=== PATIENT | female | born 1980 | race Caucasian/White ===

== ENCOUNTER → 2020-05-04 08:48 | Outpatient (BNVA) | payer MEDICAID, SELFPAY | PROVIDERS: PCP Nurse Practitioner Family; Referring Provider Nurse Practitioner Family; Visit Provider Physician Assistant | DX: R19.7 Diarrhea, unspecified (principal); K76.0 Fatty (change of) liver, not elsewhere classified; R74.8 Abnormal levels of other serum enzymes; D18.03 Hemangioma of intra-abdominal structures | CPT/HCPCS: 99212 ==

== ENCOUNTER 2020-05-30 06:43 | Outpatient (REF) | payer MEDICAID, SELFPAY ==
[2020-05-30 07:54] LABS: Alanine Aminotransferase 27 U/L (0-31); Albumin Level 4.2 g/dL (3.5-5.0); Alkaline Phosphatase 86 U/L (39-117); Anion Gap 15 (12-20); Aspartate Amino Transferase 31 U/L (5-31); Bilirubin Total 0.3 mg/dL (0.0-1.0); Blood Urea Nitrogen 9 mg/dL (9-16); Calcium 9.1 mg/dL (8.4-10.2); Carbon Dioxide 24 mmol/L (22-29); Chloride 102 mmol/L (96-108); Estimated Glomerular Filt Rate > 60; Glucose Random 124 mg/dL (60-115); Magnesium 1.9 mg/dL (1.6-2.6); Sodium 137 mmol/L (135-145); Total Protein 7.3 g/dL (6.5-8.0)
[2020-05-30 08:09] LABS: HBc Num1 0.04 S/CO (0.00-0.79); HBsAGNum1 0.15 S/CO (0.00-0.99); Hepatitis B Core Antibody Nonreactive (Nonreactive); Hepatitis B Surface Antigen Negative (Negative)
[2020-05-30 08:16] LABS: Thyroid Stimulating Hormone 1.46 uIU/mL (0.32-4.0)
[2020-05-30 08:24] LABS: HBS Num1 2.61 mIU/mL (0-7.99); ~HepC Num1 0.08 S/CO (0.00-0.79); ~Hepatitis B Surface Antibody NONREACTIVE (Nonreactive); ~Hepatitis C Antibody Nonreactive (Nonreactive)
[2020-05-30 08:28] LABS: Erythrocyte Sedimentation Rate 2 MM/HR (0-20)
[2020-05-31 17:27] LABS: CRP High Sensitivity 2.1 mg/L
[2020-06-01 07:57] LABS: Hepatitis A Antibody IgM 0.27 Index (0-0.79); ~Hepatitis A Antibody IgM Nonreactive (Nonreactive)
[2020-06-03 13:41] LABS: Transglutaminase IgA 1 U/mL
[2020-06-04 23:56] LABS: Endomysial IgA Antibody Negative (Negative)
== END 2020-05-30 06:44 | disposition home or self-care (01) ==
LOC: HO.LAB 06:43
PROVIDERS: Visit Provider Physician Assistant
DX: K59.09 Other constipation (principal); R19.7 Diarrhea, unspecified; R10.11 Right upper quadrant pain
CPT/HCPCS: 36415; 80053; 83516; 83735; 84443; 85652; 86141; 86255; 86256; 86704; 86706; 86709; 86803; 87340

== ENCOUNTER 2020-05-31 08:59 | Outpatient (REF) | payer MEDICAID, SELFPAY ==
[2020-05-31 10:11] LABS: Leukocytes Stool Qualitative NEGATIVE (NEGATIVE)
[2020-05-31 10:32] LABS: CDIFF Ag Negative (Negative); CDIFF Internal ctrl Dots and bkg OK (V); CDiff Toxin Negative (Negative)
== END 2020-05-31 09:00 | disposition home or self-care (01) ==
LOC: HO.LNP 08:59
PROVIDERS: Visit Provider Physician Assistant
DX: R19.7 Diarrhea, unspecified (principal)
CPT/HCPCS: 87045; 87046; 87077; 87186; 87324; 87329; 87449; 89055

== ENCOUNTER → 2020-06-01 08:25 | Outpatient (BNVA) | payer MEDICAID, SELFPAY ==
--- NOTE | 2020-06-03 10:57 | PM.EVENT ---
Event Note Date of Service: 06/03/20 Event Note: GI Preliminary stool results received from lab darrin ott called pt, left msg on cell to call back.
== END ==
PROVIDERS: Visit Provider Physician Assistant
DX: Z76.89 Persons encountering health services in other specified circumstances (principal)